=== PATIENT | male | born 1980 | race African-American/Black ===

== ENCOUNTER 2020-07-30 00:20 | Inpatient (IN) | payer OTHER, SELFPAY ==
[2020-07-30] MEDS ORDERED: Dextrose 50% Abboject 50 ML SYRINGE SLOW IVP PRN ×2 (01:30→01:59)
[2020-07-30] MEDS ORDERED: hydrALAZINE 20 MG/ML VIAL SLOW IVP PRN (01:30)
[2020-07-30] MEDS ORDERED: Ondansetron PF 4 MG/2 ML Vial IVP PRN (01:30)
[2020-07-30] MEDS ORDERED: Morphine 2 MG/ML VIAL SLOW IVP PRN (01:30)
[2020-07-30] MEDS ORDERED: Dextrose 5% in Water 1,000 ML IV PRN ×2 (01:30→01:59)
[2020-07-30] MEDS ORDERED: traMADol HCl 50 MG TAB PO PRN (01:35)
[2020-07-30] MEDS ORDERED: Cyclobenzaprine 10 MG TAB PO PRN (01:35)
[2020-07-30] MEDS ORDERED: Boostrix 0.5 ML (Tdap) VIAL ONE (02:20)
[2020-07-30 03:23] VITALS: BMI 20.3
[2020-07-30 05:12] LABS: #Basophils 0.1 thou/uL (0.0-0.2); #Lymphocytes 1.2 thou/uL (1.20-3.40); #Monocytes 1.4 thou/uL (0.11-0.59); #Neutrophils 10.8 thou/uL (1.40-6.50); %Basophils 0.4 % (0.0-1.0); %Eosinophils 0.3 % (0.0-10.0); %Lymphocytes 8.5 % (21.0-51.0); %Monocytes 10.2 % (0.0-10.0); %Neutrophils 80.5 % (42.0-75.0); Hemoglobin 14.8 g/dL (14.0-18.0); Mean Corpuscular Hemoglobin 30.5 pg (27.0-31.0); Mean Corpuscular Volume 92.4 fL (78.0-98.0); Mean Platelet Volume 6.7 fL (7.4-10.4); Platelet Count 232 thou/uL (130-400); Red Blood Cell (RBC) Count 4.86 mill/uL (4.70-6.10); White Blood Cell (WBC) Count 13.5 thou/uL (4.8-10.8)
[2020-07-30 05:19] LABS: Hemoglobin A1c 5.1 % (4.0-6.0)
[2020-07-30 05:27] LABS: Prothrombin Time 12.8 sec (12.0-14.7)
[2020-07-30 05:31] LABS: Anion Gap 14 mmol/L (10-20); BUN (Urea Nitrogen) 8 mg/dL (8.9-20.6); Calc. Creatinine Clearance 108 mL/min (70-130); Calcium 8.5 mg/dL (7.8-10.44); Carbon Dioxide 22 mmol/L (22-29); Cardiac Risk 2.6 (Less than 4.5); Chloride 101 mmol/L (98-107); Cholesterol 168 mg/dl (< 200 Desired); Glucose 82 mg/dL (70-105); HDL Cholesterol 65 mg/dL (>60 Neg Risk); LDL Cholesterol, Calculated 90 mg/dL; Magnesium 1.7 mg/dL (1.6-2.6); Phosphorus 2.7 mg/dL (2.3-4.7); Potassium 4.8 mmol/L (3.5-5.1); Sodium 132 mmol/L (136-145); Triglycerides 67 mg/dL (Less than 150)
[2020-07-30] MEDS: Lactated Ringer's 1,000 ML IV SCH ×3 (05:33→23:25)
[2020-07-30] MEDS: Clindamycin/D5W 600 MG in Premix Bag 1 BAG IVPB SCH ×4 (05:34→23:00)
[2020-07-30] MEDS: Acetaminophen 325 MG TAB PO SCH ×4 (05:45→22:59)
[2020-07-30] MEDS: traMADol HCl 50 MG TAB PO SCH ×4 (05:45→22:59)
[2020-07-30] MEDS: Ibuprofen 200 MG TAB PO SCH ×3 (05:45→22:59)
[2020-07-30] MEDS ORDERED: Magnesium Sulfate 3 GM in Sodium Chloride 0.9% 100 ML IVPB SCH (09:15)
[2020-07-30] MEDS: Thiamine 100 MG TAB PO SCH (11:03)
[2020-07-30] MEDS: Dexamethasone 4 MG TAB PO SCH ×3 (11:03→22:59)
[2020-07-30] MEDS: Gabapentin 100 MG CAP PO SCH ×3 (11:03→20:56)
[2020-07-30] MEDS: Folic Acid 1 MG TAB PO SCH (11:03)
[2020-07-30] MEDS: Saccharomyces boulardii 250 MG CAP PO SCH (11:04)
[2020-07-30] MEDS: Famotidine/PF 20 mg/2ml Vial SLOW IVP SCH ×2 (11:04→20:57)
[2020-07-30] MEDS: Polyethylene Glycol 3350 17 GM Packet PO SCH (12:50)
[2020-07-30] MEDS: Chlorhexidine Gluconate 15 ML UDCUP SSP SCH (20:55)
[2020-07-31 01:08] LABS: SARS-CoV-2 NAA Rapid Test Not Detected (NotDetected)
[2020-07-31] MEDS: Dexamethasone 4 MG TAB PO SCH ×3 (04:57→16:44)
[2020-07-31] MEDS: Acetaminophen 325 MG TAB PO SCH ×4 (04:57→18:23)
[2020-07-31] MEDS: Lactated Ringer's 1,000 ML IV SCH ×3 (04:58→19:37)
[2020-07-31] MEDS: Clindamycin/D5W 600 MG in Premix Bag 1 BAG IVPB SCH ×3 (04:58→17:58)
[2020-07-31] MEDS: traMADol HCl 50 MG TAB PO SCH ×4 (04:58→18:23)
[2020-07-31] MEDS: Ibuprofen 200 MG TAB PO SCH ×3 (04:58→22:24)
[2020-07-31] MEDS: Gabapentin 100 MG CAP PO SCH ×3 (08:22→19:32)
[2020-07-31] MEDS: Chlorhexidine Gluconate 15 ML UDCUP SSP SCH ×2 (08:22→19:31)
[2020-07-31] MEDS: Famotidine/PF 20 mg/2ml Vial SLOW IVP SCH ×2 (08:22→19:32)
[2020-07-31] MEDS: Saccharomyces boulardii 250 MG CAP PO SCH (08:26)
[2020-07-31] MEDS: Folic Acid 1 MG TAB PO SCH (08:26)
[2020-07-31] MEDS: Polyethylene Glycol 3350 17 GM Packet PO SCH (08:26)
[2020-07-31] MEDS: Thiamine 100 MG TAB PO SCH (08:26)
[2020-07-31] MEDS ORDERED: Fentanyl 100 MCG/2 ML VIAL ONE (09:59)
[2020-07-31] MEDS ORDERED: Lidocaine 4% Topical Sol 50 ML BOT ONE (10:13)
[2020-07-31] MEDS ORDERED: Hydrocortisone 1% Cream 30 GM TUBE ONE (10:33)
[2020-07-31] MEDS ORDERED: Lidocaine 1% w/Epinephrine 1:100K 20 ML VIAL ONE ×2 (10:33→12:18)
[2020-07-31] MEDS ORDERED: Chlorhexidine Gluconate 15 ML UDCUP SSP ONE (10:34)
[2020-07-31] MEDS ORDERED: Clindamycin/D5W 600 mg/50 ml Premix Bag ONE (11:09)
[2020-07-31] MEDS ORDERED: Dexmedetomidine 200 MCG/2 ML VIAL ONE (11:41)
[2020-07-31] MEDS ORDERED: Glycopyrrolate 0.2 MG/ML 5 ML SYRINGE ONE (11:47)
[2020-07-31] MEDS ORDERED: PROPOFOL 200 MG/20 ML VIAL ONE (11:47)
[2020-07-31] MEDS ORDERED: Ondansetron PF 4 MG/2 ML Vial ONE (11:47)
[2020-07-31] MEDS ORDERED: PHENYLEPHRINE-NS 100 MCG/ML 10 ML SYRINGE ONE (11:47)
[2020-07-31] MEDS ORDERED: Ketorolac Tromethamine 30 MG/ML VIAL ONE (11:47)
[2020-07-31] MEDS ORDERED: Lidocaine 1% PF 5 ML VIAL ONE (11:47)
[2020-07-31] MEDS ORDERED: Rocuronium Bromide 10 MG/ML (10ML VIAL) ONE (11:47)
[2020-07-31] MEDS ORDERED: Dexamethasone 20 MG/5 ML VIAL ONE (11:47)
[2020-07-31] MEDS ORDERED: AFRIN NASAL MIST 15 ML BOT ONE (11:48)
[2020-07-31] MEDS ORDERED: Sodium Chloride 0.9% 0 ML ONE (14:33)
[2020-07-31] MEDS ORDERED: Clindamycin/D5W 900 mg/50 ml Premix Bag ONE (14:35)
[2020-07-31] MEDS ORDERED: Bacitracin Zinc Ointment 30 gm TUBE ONE (16:08)
[2020-07-31] MEDS ORDERED: Ophthalmic Irrigation Solution 15 ML ONE (16:26)
[2020-07-31] MEDS ORDERED: Promethazine HCl 25 MG/ML VIAL IM PRN (16:50)
[2020-07-31] MEDS ORDERED: Ondansetron HCl/PF 4 MG/2 ML Vial IVP PRN (16:50)
[2020-07-31] MEDS ORDERED: Promethazine HCl 25 MG/ML VIAL SLOW IVP PRN (16:50)
[2020-07-31] MEDS: Dexamethasone 4 mg/ml Vial SLOW IVP SCH (18:10)
[2020-08-01] MEDS: traMADol HCl 50 MG TAB PO SCH ×3 (00:04→11:56)
[2020-08-01] MEDS: Acetaminophen 325 MG TAB PO SCH ×3 (00:04→11:55)
[2020-08-01] MEDS: Dexamethasone 4 mg/ml Vial SLOW IVP SCH ×2 (00:07→06:11)
[2020-08-01] MEDS: Clindamycin/D5W 600 MG in Premix Bag 1 BAG IVPB SCH ×2 (00:07→06:11)
[2020-08-01] MEDS: Ibuprofen 200 MG TAB PO SCH (06:07)
[2020-08-01] MEDS: Lactated Ringer's 1,000 ML IV SCH (06:17)
[2020-08-01 08:00] VITALS: BP 109/71; TEMP 97.7
[2020-08-01] MEDS: Saccharomyces boulardii 250 MG CAP PO SCH (08:49)
[2020-08-01] MEDS: Thiamine 100 MG TAB PO SCH (08:49)
[2020-08-01] MEDS: Folic Acid 1 MG TAB PO SCH (08:49)
[2020-08-01] MEDS: Gabapentin 100 MG CAP PO SCH (08:49)
[2020-08-01] MEDS: Chlorhexidine Gluconate 15 ML UDCUP SSP SCH (08:50)
[2020-08-01] MEDS: Polyethylene Glycol 3350 17 GM Packet PO SCH (08:50)
[2020-08-01] MEDS: Famotidine/PF 20 mg/2ml Vial SLOW IVP SCH (08:50)
[2020-08-01] MEDS ORDERED: Clindamycin 150 MG CAP PO SCH (12:00)
== END 2020-08-01 13:20 | disposition home or self-care (01) | DRG 141 ==
LOC: ERS 00:20 → SURG A 01:30
PROVIDERS: ADMIT Specialist; ATTEND Specialist
PROC: 0NSV04Z Reposition Left Mandible with Internal Fixation Device, Open Approach (ICD-10-PCS; principal; 2020-07-31)
PROC: 0NSR04Z Reposition Maxilla with Internal Fixation Device, Open Approach (ICD-10-PCS; 2020-07-31)
PROC: 0CQ40ZZ Repair Buccal Mucosa, Open Approach (ICD-10-PCS; 2020-07-31)
PROC: 0NQV0ZZ Repair Left Mandible, Open Approach (ICD-10-PCS; 2020-07-31)
PROC: 0JQ10ZZ Repair Face Subcutaneous Tissue and Fascia, Open Approach (ICD-10-PCS; 2020-07-31)
PROC: 0CDWXZ1 Extraction of Upper Tooth, Multiple, External Approach (ICD-10-PCS; 2020-07-31)
DX: S02.652B Fracture of angle of left mandible, initial encounter for open fracture (principal); S02.82XA Fracture of other specified skull and facial bones, left side, initial encounter for closed fracture; E87.1 Hypo-osmolality and hyponatremia; S02.66XA Fracture of symphysis of mandible, initial encounter for closed fracture; S02.411A LeFort I fracture, initial encounter for closed fracture; K02.9 Dental caries, unspecified; Z20.822 Contact with and (suspected) exposure to COVID-19; Y08.89XA Assault by other specified means, initial encounter
CPT/HCPCS: 36415; 70486; 80048; 80061; 83036; 83735; 84100; 85025; 85610; 85730; 86850; 86900; 86901; 90471; 90715; C1713; J1100; J1885; J2405; J2704; J3010; J3370; J3475; J3490; J8540; S0028; U0002; U0005